=== PATIENT | male | born 1930 | race Caucasian/White ===

== ENCOUNTER 2016-11-24 14:34 | Inpatient (IN) ==
[2016-11-26] MEDS ORDERED: NS 1,000 ML IV SCH (05:00)
[2016-11-26] MEDS ORDERED: SALINE FLUSH 10ml SYRINGE IVF PRN (05:00)
[2016-11-26] MEDS: MetroNIDAZOLE 500 MG TABLET PO SCH ×3 (05:51→22:40)
[2016-11-26] MEDS: OMEPRAZOLE 20 MG CAPSULE PO SCH (05:51)
--- NOTE | 2016-11-26 08:14 | XRay Report ---
Indication: C Diff colitis PROCEDURE: XR KUB w upright: Encounter: Initial Comparison: None Findings: Airspace consolidation in the left lower lobe. No free air identified. Nonobstructive nonspecific bowel gas pattern. No significant colonic stool burden. Mild degenerative change in the spine and hips. Impression: Nonobstructive nonspecific bowel gas pattern. .
[2016-11-26] MEDS: ASPIRIN 325 MG TABLET PO SCH (09:46)
[2016-11-26] MEDS: SODIUM BICARBONATE 650 MG TABLET PO SCH ×3 (09:53→22:40)
--- NOTE | 2016-11-26 11:58 | Progress Note ---
Subjective: Pt is doing MUCH better today. He is sitting up in bed, having his breakfast. Mentation is much improved as well, he is now verbal oriented x 3. No tachypnea , denies any abdominal pain or diarrhea. Objective Vital signs: Temp Pulse Resp BP Pulse Ox 96 F L 74 18 126/67 98 11/26/16 07:40 11/26/16 07:40 11/26/16 07:40 11/26/16 07:40 11/26/16 07:40 Rhythm: Normal Sinus Rhythm Weight: 68 kg - Constitutional Present: no acute distress - Routine HEENT Exam Head: Present: normocephalic Eye: Present: EOMI, PERRL - Routine Respiratory Exam Present: CTA bilaterally - Routine Cardiovascular Exam Present: RRR. Absent: JVD - Routine Abdominal Exam Present: soft - Routine Extremities Exam Absent: cyanosis, clubbing, edema - Routine Psychiatric Exam Present: normal affect Results - Labs CBC & Chem 7: 11/26/16 04:21 11/26/16 04:21 Labs: Short CBC 11/25/16 11/25/16 11/26/16 Range/Units 04:37 04:38 04:21 WBC 7.3 Cancelled 7.0 (4.5-11.0) T/MM3 Hgb 12.4 L D Cancelled 10.7 L (13.5-17.5) GM/DL Hct 37.9 L Cancelled 33.2 L (41-53) % Plt Count 184 Cancelled 162 (130-400) T/MM3 BMP 11/24/16 11/24/16 11/25/16 17:16 22:10 04:38 Sodium 141 142 Potassium 5.5 H 5.4 H 5.8 H Chloride 114 H 116 H Carbon Dioxide 16 L 14 L BUN 129.0 H* 117.0 H* Creatinine 2.6 H D 2.3 H D Glucose 103 86 Calcium 9.4 D 9.6 11/26/16 04:21 Sodium 146 H Potassium 4.6 Chloride 120 H Carbon Dioxide 17 L BUN 78.0 H* Creatinine 1.5 Glucose 130 H Calcium 9.0 Liver Function 11/25/16 Range/Units 04:38 Total Bilirubin 0.30 (0.20-1.30) MG/DL AST 18 (17-59) U/L ALT 49 (21-72) U/L Alkaline Phosphatase 56 (38-126) U/L Albumin 3.5 (3.5-5.0) G/DL - ABG Interpretation ABG results: 11/25/16 07:00 ABG pH 7.260 L ABG pCO2 26 L ABG HCO3 12 L ABG Total CO2 12.5 L ABG O2 Saturation 95.0 ABG Base Excess -13.8 L Assessment and Plan DVT Prophylaxis: other (Ambulating) GI Prophylaxis: other (Omeprazole) Resuscitation Status: Do Not Resuscitate (Per Admission documentation) Assessment and Plan: SUMMARY - Pt presented to the ED with RICARDO, which appeared to be of NEW onset. His normal creatinine previously ranged from 1.1 to 1.2. His BUN/Creatine on initial presentation was 150/3.6 with mild hypercalcemia Pt had no signs of any bleeding; he appeared to be confused (had H.O dementia). Pt also has H.O renal stones and is on Tx for gout; no acute gout on admission Pt was admitted to telemetry floor due to high K at the ED and hydrated (IV), with gradual improvement. He required one dose of Kayexelate on day # 2. Pt had diarrhea and a C Diff toxin test was positive. Pt was started on PO Flagyl on 11/25. On 11/26 Pt is much improved with marked improved sensorium and hydration. A) RICARDO - with marked elevation of BUN/Creatinine. No hydronephrosis seen in Renal U/S (11/25). Pt continues to improve, could have been related to C Diff colitis with DHT. - Admission BUN/Cr = 150/3.6 BUN/Cr today = 78/1.5 - C Diff toxin positive (See below) - ABG - (11/25) - pH 7.26 CO2- 26; PO2 - 85; HCO3 - 12 - O2 sats 95% - Oral Bicarb added (11/25) - Will wait till renal function is better and get a iPTH if pt has suspected CKD. Renal U/S (11/24) - No hydronephrosis. ".............................................. FINDINGS: Both kidneys are present with mild cortical thinning and normal echogenicity. No evidence for collecting system dilatation, contour deforming mass, nephrolithiasis, or abnormal perinephric fluid collection. The right kidney measures 9.4 cm in length, and the left kidney measures 8.6 cm in length. IMPRESSION: No hydronephrosis. ...................................................." B) Diarrhea probably due to C Diff colitis, causing DHT and renal failure. - Contact precautions - Continue PO Flagyl 500 mg TID. (11/25) - Pt has acidosis with partial respiratory compensation per ABG - Lactic acid level yesterday NORMAL. - Pt abdomen has no rebound tenderness. C) Delirium on admission MUCH IMPROVED. Pt also has H.O Dementia and CVA x 2 per records, but the CT (Below) showed CVA x 4 (Notes states he is able to live independently). - Multiple infarcts per CT below - A) Old right frontal B) parietal lobe infarcts with encephalomalacia. C) Chronic right cerebellar infarct. 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 CT brain (11/24) "............................................... FINDINGS: The ventricles are of normal size, shape, and configuration for the patient's age. Old right frontal and parietal lobe infarcts with encephalomalacia. 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 There is no evidence of acute intracranial hemorrhage, midline displacement, or mass effect. There are scattered areas of low attenuation in the white matter which most likely represent changes of chronic microvascular ischemia. The CT attenuation of the brain parenchyma is otherwise normal within the cerebellum, brain stem, and cerebral hemispheres. The tympanic cavities and mastoid air cells are free of appreciable disease. There are no definite fractures of the skull base, calvarium, or visualized portion of the midface. IMPRESSION: No CT evidence of acute traumatic intracranial injury. ........................................" Carotid doppler showed no hemodinamically singificant stenosis. 2-D echo can be done electively if though to be necessary. - Pt is on ASA 325 mg/day if this fails may need to use Aggrenox. - Will resume low dose Remeron (Pt was on it preadmission). D) Anemia. Admission Hemoglobin was normal and it dropped. This is probably dilutional. High BUN causes platelet dysfunction and could cause bleeding but we do not see any bleeding (could be hiding i.e retroperitoneal). Pt has no elevated RDW and has no macrocytosis. - Will check basic workup for anemia, Iron, TIBC, RBC Folate, Ferritin, B12, retic count. If iron deficiency will add Hemoccults E) Tachypnea - Due to metabolic acidosis at least in part. CO2 still low on todays BMP - 17. - CXR - no acute cardiopulmonary disease. F) Gout by history, will hold off on Colchicine and Febuxostat as well as NSAID' s at present. If he has an acute attack may use steroids. Will check LFT's if OK may resume Colchicine. G) HTN - Continue metoprolol 50mg/day with parameters. H) Hyperlipidemia - check lipid in the AM to address need for Statin and type of statin needed. I) Polypharmacy - Will hold off ACEI due to elevated creatinine with high K since BP is normal. - Hold off NSAID's, Colchicine, Febuxostat, Ibuprofen, Zocor (in case of rhabdo) , Biotin, Black Baptiste, Turmeric,cranberry, VItamin , BIotin and APAP. Due to new software being used I have copied the list of medication upon admission "............................... Lisinopril (Lisinopril) 40 Mg Tablet, 40 MG PO DAILY for 30 Days, #30 TAB Prov:HUBERT MCCLAIN APRN 08/10/16 Tamsulosin HCl (Tamsulosin HCl) 0.4 Mg Cap.er.24h, 0.4 MG PO DAILY for 30 Days, #30 TAB Prov:CATHY PIPER MD 08/07/16 Aspirin (Aspirin) 325 Mg Tablet, 325 MG PO DAILY for 30 Days, #30 TAB Prov:CATHY PIPER MD 08/07/16 Omeprazole (Omeprazole) 20 Mg Capsule.dr, 20 MG PO DAILY for 30 Days, #30 TAB Prov:CATHY PIPER MD 08/07/16 Reported Medications Biotin (Biotin) 1,000 Mcg Tab.chew, 1000 MCG PO QD 11/24/16 Cranberry Conc/C/Bacill Coag (Cranberry Tablet) 1 Each Tablet, 4200 MG PO QD 11/24/16 Ibuprofen (Ibuprofen) 200 Mg Tablet, 1 TAB PO HS, TAB 11/24/16 Magnesium Oxide (Magnesium) 250 Mg Tablet, 250 MG PO BID, TAB 11/24/16 Cholecalciferol (Vitamin D3) 1,000 Unit Tablet, 1000 UNIT PO BID 11/24/16 [tumeric] No Conflict Check, 1300 MG PO QD 11/24/16 [black baptiste] No Conflict Check, 1000 MG PO QD 11/24/16 Acetaminophen (Acetaminophen) 500 Mg Tablet, 2 TAB PO QD Do not exceed 3,200 mg of acetaminophen in a 24 hours period. 11/24/16 Febuxostat (Uloric) 80 Mg Tablet, 80 MG PO HS 11/24/16 Mirtazapine (Mirtazapine) 7.5 Mg Tablet, 7.5 MG PO HS 11/24/16 Colchicine (Colchicine) 0.6 Mg Tablet, 0.6 MG PO AM 11/24/16 Simvastatin (Simvastatin) 40 Mg Tablet, 20 MG PO HS, TAB Take 1 tablet, by mouth, 1 time a day (at BEDTIME). 11/24/16 Metoprolol Tartrate (Metoprolol Tartrate) 100 Mg Tablet, 50 MG PO WB, TAB Take 1 tab, by mouth, one time a day (with breakfast). 11/24/16 ......................................................." Sepsis Assessment - Evaluation Sepsis screening result: No Definite Risk - Focused Exam Vital Signs Temp Pulse Resp BP Pulse Ox 11/26/16 07:40 96 F L 74 18 126/67 98 Hospital Course Summary Disclaimer: The visit summary below is not to be considered part of the above Progress Note.
[2016-11-26] MEDS: TAMSULOSIN 0.4 MG CAPSULE PO SCH (22:40)
[2016-11-26] MEDS: MIRTAZAPINE 15 MG TABLET PO SCH (22:40)
[2016-11-27] MEDS: MetroNIDAZOLE 500 MG TABLET PO SCH ×3 (05:48→20:42)
[2016-11-27] MEDS: OMEPRAZOLE 20 MG CAPSULE PO SCH (05:48)
[2016-11-27] MEDS: SODIUM BICARBONATE 650 MG TABLET PO SCH ×3 (08:13→20:43)
[2016-11-27] MEDS: ASPIRIN 325 MG TABLET PO SCH (08:17)
--- NOTE | 2016-11-27 09:07 | Progress Note ---
Subjective: Continues to improve. He is sitting up in bed, having his breakfast. States his diarrhea is resolved and that he would like to go home today. Objective Vital signs: Temp Pulse Resp BP Pulse Ox 97.6 F 80 16 151/69 H 96 11/27/16 07:26 11/27/16 07:57 11/27/16 07:26 11/27/16 07:26 11/27/16 07:26 Rhythm: Normal Sinus Rhythm Weight: 68.7 kg - Constitutional Present: no acute distress - Routine HEENT Exam Head: Present: normocephalic, atraumatic - Routine Respiratory Exam Present: CTA bilaterally - Routine Abdominal Exam Present: soft - Routine Extremities Exam Absent: cyanosis, clubbing, edema - Routine Psychiatric Exam Present: normal affect Results - Labs CBC & Chem 7: 11/26/16 04:21 11/27/16 04:59 Labs: Short CBC 11/26/16 Range/Units 04:21 WBC 7.0 (4.5-11.0) T/MM3 Hgb 10.7 L (13.5-17.5) GM/DL Hct 33.2 L (41-53) % Plt Count 162 (130-400) T/MM3 BMP 11/27/16 04:59 Sodium 147 H Potassium 4.6 Chloride 118 H Carbon Dioxide 19 L BUN 50.0 H Creatinine 1.3 D Glucose 92 Calcium 9.3 - ABG Interpretation ABG results: 11/25/16 07:00 ABG pH 7.260 L ABG pCO2 26 L ABG HCO3 12 L ABG Total CO2 12.5 L ABG O2 Saturation 95.0 ABG Base Excess -13.8 L Assessment and Plan Assessment and Plan: SUMMARY - Pt presented to the ED with RICARDO, which appeared to be of NEW onset. His normal creatinine previously ranged from 1.1 to 1.2. His BUN/Creatine on initial presentation was 150/3.6 with mild hypercalcemia (Corrected Ca for albumin was a bit above normal), that has now corrected. Pt had no signs of any bleeding; he appeared to be confused (had H.O dementia). Pt also has H.O renal stones and is on Tx for gout; no acute gout on admission Pt was admitted to telemetry floor due to high K at the ED and hydrated (IV), with gradual improvement. He required one dose of Kayexelate on day # 2. Pt had diarrhea and a C Diff toxin test was positive. Pt was started on PO Flagyl on 11/25. On 11/26 Pt is much improved with marked improved sensorium and hydration, he continues to improve gradually. A) RICARDO - with marked elevation of BUN/Creatinine. No hydronephrosis seen in Renal U/S (11/25). Pt continues to improve, DHT and RICARDO probably related to C Diff colitis with DHT. - Admission BUN/Cr = 150/3.6 BUN/Cr (11/26) = 78/1.5; BUN/Cr (11/27) = 50/1.3 - ABG - (11/25) - pH 7.26 CO2- 26; PO2 - 85; HCO3 - 12 - O2 sats 95%; Oral Bicarb added (11/25) - Will wait till renal function is better and get a iPTH if pt has suspected CKD. Renal U/S (11/24) - No hydronephrosis. B) Diarrhea probably due to C Diff colitis, causing DHT and renal failure, Flagyl (PO) day # 3 - Contact precautions - Continue PO Flagyl 500 mg TID. (11/25) - Pt abdomen has no rebound tenderness. C) Delirium on admission MUCH IMPROVED. Pt also has H.O Dementia and CVA x 2 per records, but the CT (Below) showed CVA x 4 (Notes states he is able to live independently). - Multiple infarcts per CT below - A) Old right frontal B) parietal lobe infarcts with encephalomalacia. C) Chronic right cerebellar infarct. 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 CT brain (11/24) "........................... Old right frontal and parietal lobe infarcts with encephalomalacia. 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 There is no evidence of acute intracranial hemorrhage, midline displacement, or mass effect. There are scattered areas of low attenuation in the white matter which most likely represent changes of chronic microvascular ischemia. ............................................" Carotid doppler showed no hemodinamically singificant stenosis. 2-D echo can be done electively if though to be necessary. - Pt is on ASA 325 mg/day if this fails may need to use Aggrenox. D) Anemia. Admission Hemoglobin was normal and it dropped. This is probably dilutional. Pt has no elevated RDW and has no macrocytosis. - Anemia workup so far suggests ACD. E) Tachypnea - Due to metabolic acidosis at least in part. CO2 still low on todays BMP - 17. - CXR - no acute cardiopulmonary disease. F) Gout by history, will hold off on Colchicine and Febuxostat as well as NSAID' s at present. If he has an acute attack may use steroids. Will check LFT's if OK may resume Colchicine. G) HTN - Continue metoprolol 50mg/day with parameters. H) Hyperlipidemia - Will resume statin. I) Polypharmacy - Will hold off ACEI due to elevated creatinine with high K since BP is normal. - Hold off NSAID's, Colchicine, Febuxostat, Ibuprofen, Zocor (in case of rhabdo) , Biotin, Black Baptiste, Turmeric,cranberry, VItamin , BIotin and APAP. List of pre-admission meds -> "............................... Lisinopril (Lisinopril) 40 Mg Tablet, 40 MG PO DAILY for 30 Days, #30 TAB Prov:HUBERT MCCLAIN APRN 08/10/16 Tamsulosin HCl (Tamsulosin HCl) 0.4 Mg Cap.er.24h, 0.4 MG PO DAILY for 30 Days, #30 TAB Prov:CATHY PIPER MD 08/07/16 Aspirin (Aspirin) 325 Mg Tablet, 325 MG PO DAILY for 30 Days, #30 TAB Prov:CATHY PIPER MD 08/07/16 Omeprazole (Omeprazole) 20 Mg Capsule.dr, 20 MG PO DAILY for 30 Days, #30 TAB Prov:CATHY PIPER MD 08/07/16 Reported Medications Biotin (Biotin) 1,000 Mcg Tab.chew, 1000 MCG PO QD 11/24/16 Cranberry Conc/C/Bacill Coag (Cranberry Tablet) 1 Each Tablet, 4200 MG PO QD 11/24/16 Ibuprofen (Ibuprofen) 200 Mg Tablet, 1 TAB PO HS, TAB 11/24/16 Magnesium Oxide (Magnesium) 250 Mg Tablet, 250 MG PO BID, TAB 11/24/16 Cholecalciferol (Vitamin D3) 1,000 Unit Tablet, 1000 UNIT PO BID 11/24/16 [tumeric] No Conflict Check, 1300 MG PO QD 11/24/16 [black baptiste] No Conflict Check, 1000 MG PO QD 11/24/16 Acetaminophen (Acetaminophen) 500 Mg Tablet, 2 TAB PO QD Do not exceed 3,200 mg of acetaminophen in a 24 hours period. 11/24/16 Febuxostat (Uloric) 80 Mg Tablet, 80 MG PO HS 11/24/16 Mirtazapine (Mirtazapine) 7.5 Mg Tablet, 7.5 MG PO HS 11/24/16 Colchicine (Colchicine) 0.6 Mg Tablet, 0.6 MG PO AM 11/24/16 Simvastatin (Simvastatin) 40 Mg Tablet, 20 MG PO HS, TAB Take 1 tablet, by mouth, 1 time a day (at BEDTIME). 11/24/16 Metoprolol Tartrate (Metoprolol Tartrate) 100 Mg Tablet, 50 MG PO WB, TAB Take 1 tab, by mouth, one time a day (with breakfast). 11/24/16 ......................................................." Sepsis Assessment - Evaluation Sepsis screening result: No Definite Risk - Focused Exam Vital Signs Temp Pulse Resp BP Pulse Ox 11/27/16 07:57 80 11/27/16 07:26 97.6 F 66 16 151/69 H 96 11/27/16 00:00 98.0 F 82 18 131/68 97 Respiratory exam: Present: CTA bilaterally Cardiovascular exam: Present: RRR. Absent: JVD Capillary refill: < 2-3 Seconds Hospital Course Summary Disclaimer: The visit summary below is not to be considered part of the above Progress Note.
[2016-11-27] MEDS: TAMSULOSIN 0.4 MG CAPSULE PO SCH (21:00)
[2016-11-27] MEDS: MIRTAZAPINE 15 MG TABLET PO SCH (21:00)
[2016-11-28] MEDS: MetroNIDAZOLE 500 MG TABLET PO SCH ×2 (06:25→12:00)
[2016-11-28] MEDS: OMEPRAZOLE 20 MG CAPSULE PO SCH (06:25)
[2016-11-28] MEDS: SODIUM BICARBONATE 650 MG TABLET PO SCH ×2 (09:21→14:25)
[2016-11-28] MEDS: ASPIRIN 325 MG TABLET PO SCH (09:21)
[2016-11-28] MEDS ORDERED: LISINOPRIL 20 MG TABLET PO SCH (10:00)
--- NOTE | 2016-11-28 14:58 | Progress Note ---
Subjective: Pt states he is feeling well today. No new episodes of diarrhea. He is alert and oriented. States wants to go home today. Objective Vital signs: Temp Pulse Resp BP Pulse Ox 97.6 F 77 16 117/64 98 11/28/16 08:00 11/28/16 08:00 11/28/16 08:00 11/28/16 11:59 11/28/16 08:00 Rhythm: Normal Sinus Rhythm Weight: 67.9 kg - Constitutional Present: no acute distress - Routine HEENT Exam Head: Present: normocephalic, atraumatic Eye: Present: EOMI, PERRL ENT: Present: mucous membranes moist - Routine Respiratory Exam Present: CTA bilaterally - Routine Cardiovascular Exam Present: RRR - Routine Abdominal Exam Present: soft, non distended - Routine Extremities Exam Absent: cyanosis, clubbing, edema - Routine Musculoskeletal Exam Musculoskeletal: no clubbing or cyanosis, moving extremities well - Routine Skin Exam Present: intact - Routine Neurological Exam Present: alert, normal speech - Routine Lymphatic Exam Lymphatic: Absent: adenopathy - Routine Psychiatric Exam Present: normal affect Results - Labs CBC & Chem 7: 11/28/16 09:05 11/28/16 09:05 Labs: Short CBC 11/28/16 Range/Units 09:05 WBC 6.0 (4.5-11.0) T/MM3 Hgb 11.4 L (13.5-17.5) GM/DL Hct 34.6 L (41-53) % Plt Count 160 (130-400) T/MM3 BMP 11/28/16 09:05 Sodium 146 H Potassium 4.3 Chloride 116 H Carbon Dioxide 20 L BUN 29.0 H Creatinine 1.1 D Glucose 90 Calcium 9.4 Liver Function 11/28/16 Range/Units 09:05 Total Bilirubin 0.30 (0.20-1.30) MG/DL AST 26 (17-59) U/L ALT 47 (21-72) U/L Alkaline Phosphatase 51 (38-126) U/L Albumin 3.1 L (3.5-5.0) G/DL - ABG Interpretation ABG results: 11/25/16 07:00 ABG pH 7.260 L ABG pCO2 26 L ABG HCO3 12 L ABG Total CO2 12.5 L ABG O2 Saturation 95.0 ABG Base Excess -13.8 L Assessment and Plan Assessment and Plan: SUMMARY - Pt presented to the ED with RICARDO, which appeared to be of NEW onset. His normal creatinine previously ranged from 1.1 to 1.2. His BUN/Creatine on initial presentation was 150/3.6 with mild hypercalcemia (Corrected Ca for albumin was a bit above normal), that has now corrected his BUN/Cr and calcium. Pt had no signs of any bleeding; he appeared to be confused (had H.O dementia) , but improved remarkably rapidly so he had TME (Delirium) superimposed on mild dementia. Pt also has H.O renal stones and is on Tx for gout; no acute gout on admission Pt was admitted to telemetry floor due to high K at the ED and hydrated (IV), with gradual improvement. He required one dose of Kayexelate on day # 2. Pt had diarrhea and a C Diff toxin test was positive. Pt was started on PO Flagyl on 11/25. On 11/26 Pt is much improved with marked improved sensorium and hydration, he continues to improve gradually. Today his labs remain stable; he is tolerating PO well and has had no diarrhea today. FINAL DIAGNOSIS - A) Acute renal failure with marked azotemia and hyperkalemia on admission - RESOLVED - with marked elevation of BUN/Creatinine, improved - No hydronephrosis seen in Renal U/S (11/25). His RICARDO resolved and is K is normal. - Admission BUN/Cr = 150/3.6 BUN/Cr (/) = 78/1.5; BUN/Cr (/) = 50/1.3 ; BUN/Cr (/) = 29/1.1 - ABG - (11/25) - pH 7.26 CO2- 26; PO2 - 85; HCO3 - 12 - O2 sats 95%; Oral Bicarb added (11/25) B) C Diff colitis, causing DHT and renal failure, Flagyl (PO) day # 4. This is much improved. - Contact precautions - Continue PO Flagyl 500 mg TID. (11/25) For 4 more days. Spoke with daughter and educated on contact precautions. - D/C home now. C) Delirium on admission MUCH IMPROVED. Pt also has H.O Dementia and CVA x 2 per records, but the CT (Below) showed CVA x 4 (Notes states he is able to live independently). - Multiple infarcts per CT below - CT brain (11/24) "........................... Old right frontal and parietal lobe infarcts with encephalomalacia. 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 There is no evidence of acute intracranial hemorrhage, midline displacement, or mass effect. There are scattered areas of low attenuation in the white matter which most likely represent changes of chronic microvascular ischemia. ............................................" Carotid doppler showed no hemodinamically singificant stenosis. 2-D echo can be done electively if though to be necessary. - Pt is on ASA 325 mg/day if this fails may need to use Aggrenox. - Pt has no acute CVA. - Follow up with PCP and consider statin treatment. D) Anemia. Admission Hemoglobin was normal and it dropped. This is probably dilutional. Pt has no elevated RDW and has no macrocytosis. - Anemia workup so far suggests ACD. E) Tachypnea - Due to metabolic acidosis at least in part. CO2 still low on todays BMP - 17. - CXR - no acute cardiopulmonary disease. F) Gout by history, will hold off on Colchicine and Febuxostat as well as NSAID' s at present. If he has an acute attack may use steroids. Will check LFT's if OK may resume Colchicine. G) HTN - Continue metoprolol 50mg/day with parameters. H) Hyperlipidemia - was on Zocor on admission will resume on D/C I) Hypogammaglobulinemia - If pt develops recurrent C Diff he may need this addressed. I) Polypharmacy - Pt may resume - Colchicine, Febuxostat, Ibuprofen, Biotin, Black Baptiste, Turmeric,cranberry, VItamin , BIotin and APAP. Consideration should be given to trim his medications and nutritional supplements. - Omeprazole will be changed to Ranitidine to reduce risk of reinfection by C Diff. Sepsis Assessment - Evaluation Sepsis screening result: No Definite Risk - Focused Exam Vital Signs Temp Pulse Resp BP Pulse Ox 06/03/17 11:59 117/64 11/28/16 08:00 97.6 F 77 16 138/79 98 Respiratory exam: Present: CTA bilaterally Cardiovascular exam: Present: RRR. Absent: JVD Capillary refill: < 2-3 Seconds Hospital Course Summary Disclaimer: The visit summary below is not to be considered part of the above Progress Note.
--- NOTE | 2016-11-28 15:46 | Discharge Summary ---
Discharge Plan - [facility] Instructions: Ulcerative Colitis (DC) Prescriptions: New Lisinopril [Prinivil] 20 mg PO DAILY #30 Metoprolol Tartrate [Lopressor] 50 mg PO WB MetroNIDAZOLE [Flagyl] 500 mg PO Q8H #12 Ranitidine [Zantac] 150 mg PO BID #60 tablet Sodium Bicarbonate [Sodium Bicarbonate] 650 mg PO TID #60 Tamsulosin [Flomax] 0.4 mg PO HS cap Aspirin [ASA] 325 mg PO DAILY Mirtazapine [Remeron] 7.5 mg PO HS Continue Aspirin 325 mg PO DAILY 30 Days Tamsulosin HCl 0.4 mg PO DAILY 30 Days Metoprolol Tartrate 50 mg PO WB #0 tab Colchicine 0.6 mg PO AM #0 Febuxostat [Uloric] 80 mg PO HS #0 Acetaminophen 1,000 mg PO DAILY #0 black richmond 1,000 mg PO QD #0 Cholecalciferol [Vitamin D-3] 1,000 unit PO BID #0 Cranberry Conc/C/Bacill Coag [Cranberry Tablet] 4,200 mg PO QD #0 Biotin 1,000 mcg PO DAILY #0 Turmeric 1,300 mg PO DAILY Simvastatin 20 mg PO HS #0 tab Mirtazapine 7.5 mg PO HS #0 Magnesium Oxide [Magnesium] 250 mg PO BID #0 tab Discontinued Lisinopril 40 mg PO DAILY 30 Days Ibuprofen 200 mg PO HS #0 tab Omeprazole 20 mg PO DAILY 30 Days - Disposition 01 Discharged Home, Self-Care
--- NOTE | 2016-11-28 15:50 | Discharge Summary ---
Discharge Information Date of admission: 11/24/16 17:15 Anticipated date of discharge: 11/28/16 Attending Physician: Devin Wilkerson MD Primary care physician: Devin Wilkerson MD Consults: 11/25/16 15:10 Case Management Consult [CONS] Routine Reason For Exam: discharge planning - may need placement - Procedures Procedures: Procedures Gait Training/Functional Ambulation Treatment using Assistive, Adaptive, Supportive or Protective Equipment (07/23/16) Home Management Treatment (07/23/16) Therapeutic Exercise Treatment of Musculoskeletal System - Whole Body (07/23/16) - Laboratory Labs: 11/28/16 09:05 11/28/16 09:05 History of Present Illness HPI: Pt came to the hospital confused, with RICARDO dehydration and mental status changes. Apparently he had been having diarrhea at home. 11/28/16 15:54 Hospital Course Hospital course: SUMMARY - Pt presented to the ED with RICARDO, which appeared to be of NEW onset. His normal creatinine previously ranged from 1.1 to 1.2. His BUN/Creatine on initial presentation was 150/3.6 with mild hypercalcemia (Corrected Ca for albumin was a bit above normal), that has now corrected his BUN/Cr and calcium. Pt had no signs of any bleeding; he appeared to be confused (had H.O dementia) , but improved remarkably rapidly so he had TME (Delirium) superimposed on mild dementia. Pt also has H.O renal stones and is on Tx for gout; no acute gout on admission Pt was admitted to telemetry floor due to high K at the ED and hydrated (IV), with gradual improvement. He required one dose of Kayexelate on day # 2. Pt had diarrhea and a C Diff toxin test was positive. Pt was started on PO Flagyl on 11/25. On 11/26 Pt is much improved with marked improved sensorium and hydration, he continues to improve gradually. Today his labs remain stable; he is tolerating PO well and has had no diarrhea today. FINAL DIAGNOSIS - A) Acute renal failure with marked azotemia and hyperkalemia on admission - RESOLVED - with marked elevation of BUN/Creatinine, improved - No hydronephrosis seen in Renal U/S (11/25). His RICARDO resolved and is K is normal. - Admission BUN/Cr = 150/3.6 BUN/Cr (11/26) = 78/1.5; BUN/Cr (11/27) = 50/1.3 ; BUN/Cr (6) = 29/1.1 - ABG - (11/25) - pH 7.26 CO2- 26; PO2 - 85; HCO3 - 12 - O2 sats 95%; Oral Bicarb added (11/25) B) C Diff colitis, causing DHT and renal failure, Flagyl (PO) day # 4. This is much improved. - Contact precautions - Continue PO Flagyl 500 mg TID. (11/25) For 4 more days. Spoke with daughter and educated on contact precautions. - D/C home now. C) Delirium on admission MUCH IMPROVED. Pt also has H.O Dementia and CVA x 2 per records, but the CT (Below) showed CVA x 4 (Notes states he is able to live independently). - Multiple infarcts per CT below - CT brain (11/24) "........................... Old right frontal and parietal lobe infarcts with encephalomalacia. 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 There is no evidence of acute intracranial hemorrhage, midline displacement, or mass effect. There are scattered areas of low attenuation in the white matter which most likely represent changes of chronic microvascular ischemia. ............................................" Carotid doppler showed no hemodinamically singificant stenosis. 2-D echo can be done electively if though to be necessary. - Pt is on ASA 325 mg/day if this fails may need to use Aggrenox. - Pt has no acute CVA. - Follow up with PCP and consider statin treatment. D) Anemia. Admission Hemoglobin was normal and it dropped. This is probably dilutional. Pt has no elevated RDW and has no macrocytosis. - Anemia workup so far suggests ACD. E) Tachypnea - Due to metabolic acidosis at least in part. CO2 still low on todays BMP - 17. - CXR - no acute cardiopulmonary disease. F) Gout by history, will hold off on Colchicine and Febuxostat as well as NSAID' s at present. If he has an acute attack may use steroids. Will check LFT's if OK may resume Colchicine. G) HTN - Continue metoprolol 50mg/day with parameters. H) Hyperlipidemia - was on Zocor on admission will resume on D/C I) Hypogammaglobulinemia - If pt develops recurrent C Diff he may need this addressed. I) Polypharmacy - Pt may resume - Colchicine, Febuxostat, Ibuprofen, Biotin, Black Baptiste, Turmeric,cranberry, VItamin , BIotin and APAP. Consideration should be given to trim his medications and nutritional supplements. - Omeprazole will be changed to Ranitidine to reduce risk of reinfection by C Diff. Discharge Plan - [facility] Rec/Dispo Herb Instructions: Clostridium Difficile Infection (DC) Prescriptions: New Lisinopril [Prinivil] 20 mg PO DAILY #30 Metoprolol Tartrate [Lopressor] 50 mg PO WB MetroNIDAZOLE [Flagyl] 500 mg PO Q8H #12 Ranitidine [Zantac] 150 mg PO BID #60 tablet Sodium Bicarbonate [Sodium Bicarbonate] 650 mg PO TID #60 Tamsulosin [Flomax] 0.4 mg PO HS cap Aspirin [ASA] 325 mg PO DAILY Mirtazapine [Remeron] 7.5 mg PO HS Continue Aspirin 325 mg PO DAILY 30 Days Tamsulosin HCl 0.4 mg PO DAILY 30 Days Metoprolol Tartrate 50 mg PO WB #0 tab Colchicine 0.6 mg PO AM #0 Febuxostat [Uloric] 80 mg PO HS #0 Acetaminophen 1,000 mg PO DAILY #0 black baptiste 1,000 mg PO QD #0 Cholecalciferol [Vitamin D-3] 1,000 unit PO BID #0 Cranberry Conc/C/Bacill Coag [Cranberry Tablet] 4,200 mg PO QD #0 Biotin 1,000 mcg PO DAILY #0 Turmeric 1,300 mg PO DAILY Simvastatin 20 mg PO HS #0 tab Mirtazapine 7.5 mg PO HS #0 Magnesium Oxide [Magnesium] 250 mg PO BID #0 tab Discontinued Lisinopril 40 mg PO DAILY 30 Days Ibuprofen 200 mg PO HS #0 tab Omeprazole 20 mg PO DAILY 30 Days - Disposition 01 Discharged Home, Self-Care
== END 2016-11-28 16:40 | disposition home or self-care (01) | DRG 372 ==
LOC: MED 17:15
PROVIDERS: ADMIT Internal Medicine; ATTEND Internal Medicine